=== PATIENT | male | born 1990 | race Two or more races ===

== ENCOUNTER 2020-05-19 19:39 | Emergency (ER) | payer MEDICARE, MEDICAID ==
[2020-05-19 20:26] LABS: ABSOLUTE BASOPHILS # (AUTO) 0.1 10^3/uL (0.0-0.2); ABSOLUTE EOSINOPHILS # (AUTO) 0.3 10^3/uL (0.0-0.6); ABSOLUTE LYMPHOCYTES (AUTO) 3.3 10^3/uL (0.5-4.7); ABSOLUTE MONOCYTES (AUTO) 0.6 10^3/uL (0.1-1.4); ABSOLUTE NEUT (AUTO) 4.5 10^3/uL (1.7-8.2); BASOPHILS % (AUTO) 0.6 % (0-2); EOSINOPHILS % (AUTO) 2.9 % (0-6); HEMOGLOBIN 16.1 g/dL (13.5-17.0); LYMPHOCYTES % (AUTO) 38.3 % (13-45); MEAN CORPUSCULAR HEMOGLOBIN 33.1 pg (27.0-33.4); MEAN CORPUSCULAR HGB CONC 35.8 g/dL (32.0-36.0); MEAN CORPUSCULAR VOLUME 92 fl (80-97); MONOCYTES % (AUTO) 6.5 % (3-13); PLATELET COUNT 236 10^3/uL (150-450); RED BLOOD COUNT 4.88 10^6/uL (4.35-5.55); RED CELL DISTRIBUTION WIDTH 12.6 % (11.5-14.0); SEGMENTED NEUTROPHILS % (AUTO) 51.7 % (42-78); TOTAL CELLS COUNTED % (AUTO) 100 %; WHITE BLOOD COUNT 8.7 10^3/uL (4.0-10.5)
[2020-05-19 20:30] LABS: ALBUMIN 4.4 g/dL (3.5-5.0); ALKALINE PHOSPHATASE 112 U/L (38-126); ANION GAP 10 (5-19); ASPARTATE AMINO TRANSFERASE 28 U/L (17-59); BILIRUBIN,DIRECT 0.3 mg/dL (0.0-0.4); BILIRUBIN,TOTAL 0.6 mg/dL (0.2-1.3); BLOOD UREA NITROGEN 11 mg/dL (7-20); CALCIUM 9.6 mg/dL (8.4-10.2); CARBON DIOXIDE 24 mmol/L (22-30); CHLORIDE 102 mmol/L (98-107); GLUCOSE 283 mg/dL (75-110); POTASSIUM 4.2 mmol/L (3.6-5.0); TOTAL PROTEIN 7.5 g/dL (6.3-8.2)
[2020-05-19 20:33] LABS: ALCOHOL < 10 mg/dL (NONE DETECTED)
--- NOTE | 2020-05-19 20:58 | EKG REPORT ---
SEVERITY:- BORDERLINE ECG - SINUS RHYTHM BORDERLINE IVCD WITH LAD : Confirmed by: Sonu Esquivel MD 19-May-2020 20:58:25
--- NOTE | 2020-05-19 21:45 | ER Document Report ---
ED General - General Chief Complaint: Probable Seizure Stated Complaint: POSSIBLE SEIZURE Time Seen by Provider: 05/19/20 21:01 - HPI Notes: Patient is a 29-year-old male who presents to the emergency department for evaluation of possible seizure. He has had activity like this in the past, never have is been diagnosed. He has not had an episode like this since moving to [place] from [facility] only 2 years ago. Evidently he went outside to smoke a cigarette. He was walking in, felt dizzy. He sat down and had started having this episode. Patient's states his arms were extended, his legs were spread and shaking, his head was back, and occasionally his eyes rolled back, but primarily they were straight ahead. He was not incontinent of bowel or bladder. He did not bite his tongue. He states he has a mild headache now. He states that before these episodes he gets a "tingling in the nerves in the back of my brain." He has never been evaluated by neurology. - Related Data Allergies/Adverse Reactions: Penicillins Allergy (Verified 05/19/20 21:42) Home Medications: None Past Medical History - General Information source: Patient - Social History Smoking Status: Current Every Day Smoker Frequency of alcohol use: None Drug Abuse: Marijuana Family History: COPD Patient has homicidal ideation: No Neurological Medical History: Reports: Hx Seizures - Undiagnosed Endocrine Medical History: Reports: Hx Diabetes Mellitus Type 2 - borderline, no meds Review of Systems - Review of Systems Constitutional: No symptoms reported EENT: No symptoms reported Cardiovascular: No symptoms reported Respiratory: No symptoms reported Gastrointestinal: No symptoms reported Genitourinary: No symptoms reported Musculoskeletal: No symptoms reported Skin: No symptoms reported Neurological/Psychological: See HPI Physical Exam - Vital signs Vitals: Resp Pulse Ox 13 98 05/19/20 19:45 05/19/20 19:45 - Notes Notes: This is an obese 29-year-old male, who appears his stated age, no acute distress . Vital signs reviewed, please refer to chart. Head is normocephalic, atraumatic. Pupils equal round, reactive to light. Neck is supple without meningismus. Heart is regular rate and rhythm. Lungs are clear to auscultation bilaterally. Abdomen is soft, nontender, normoactive bowel sounds throughout. Extremities without cyanosis, clubbing. Posterior calves are nontender. Peripheral pulses are equal. Skin is warm and dry. Patient is awake, alert, oriented x3. Cranial nerves II - XII are grossly intact without focal neurological deficits. Strength is plus 5 out of 5 bilateral upper and lower extremities. Sensation is intact. Reflexes symmetrical. Intact [id number], rapid alternating movements, [id number]. Course - Re-evaluation Re-evalutation: 05/19/20 21:44 Patient presents to the emergency department for evaluation. He reports a 10- minute episode that may be a seizure. He is never had an EEG. Here he is neurologically intact. Laboratory investigations are ordered as through triage. I am still awaiting urinalysis. At this point, he has no neurological deficits. I believe that a neurology referral is appropriate at this time. I have told the patient that he is not to drive, he states he does not drive. He is currently stable, seizure precautions are in place. Awaiting urinalysis, we will continue to monitor. 05/19/20 22:49 Urinalysis is unremarkable. Drug screen is only positive for marijuana, which the patient admits, and is an unlikely etiology for these episodes. Will refer him to neurology. He is to return to the ER with worsening. - Vital Signs Vital signs: Temp Pulse Resp BP Pulse Ox 98.1 F 15 137/82 H 97 05/19/20 19:46 05/19/20 20:01 05/19/20 20:01 05/19/20 20:01 - Laboratory Result Diagrams: 05/19/20 20:00 05/19/20 20:00 Laboratory results interpreted by me: 05/19/20 05/19/20 20:00 21:44 Sodium 136.1 L Glucose 283 H Urine Glucose (UA) >=500 H Urine Ketones TRACE H - EKG Interpretation by Me Additional EKG results interpreted by me: 05/19/20 21:45 Sinus mechanism with rate of 73 bpm. Left axis deviation. IVCD. Nonspecific ST changes, but no acute changes concerning for ischemia or infarction. There are no old studies available for comparison. Discharge - Discharge Clinical Impression: Witnessed seizure-like activity Condition: Stable Disposition: HOME, SELF-CARE Instructions: New Seizure ([facility]) Additional Instructions: It is unclear at this time as to whether or not these episodes are seizures. You need to follow-up with neurology. No driving. Return to the emergency department with worsening or new concerning symptoms of any sort. Referrals: MIKAL FISHER MD [NO LOCAL MD] - Follow up as needed
[2020-05-19 22:27] LABS: APPEARANCE,URINE CLEAR; BILIRUBIN,URINE NEGATIVE (NEGATIVE); COLOR,URINE YELLOW; GLUCOSE, URINE >=500 mg/dL (NEGATIVE); KETONES,URINE TRACE mg/dL (NEGATIVE); LEUKOCYTE ESTERASE,URINE NEGATIVE (NEGATIVE); NITRITE,URINE NEGATIVE (NEGATIVE); PROTEIN,URINE NEGATIVE (NEGATIVE); URINE SPECIFIC GRAVITY 1.031; UROBILINOGEN,URINE NEGATIVE mg/dL (<2.0)
[2020-05-19 22:46] LABS: URINE AMPHETAMINES SCREEN NEGATIVE; URINE BARBITURATES SCREEN NEGATIVE; URINE BENZODIAZEPINES SCREEN NEGATIVE; URINE COCAINE SCREEN NEGATIVE; URINE METHADONE SCREEN NEGATIVE; URINE PHENCYCLIDINE SCREEN NEGATIVE
[2020-05-19 22:47] LABS: URINE MARIJUANA (THC) SCREEN UNCONFIRMED POSITIVE
[2020-05-19 23:18] VITALS: BP 122/70
== END 2020-05-19 23:18 | disposition home or self-care (01) ==
LOC: ER 19:39
DX: R42 Dizziness and giddiness (principal); R51 Headache; R20.2 Paresthesia of skin; I45.9 Conduction disorder, unspecified; F17.200 Nicotine dependence, unspecified, uncomplicated; F17.210 Nicotine dependence, cigarettes, uncomplicated; F12.10 Cannabis abuse, uncomplicated; Z88.0 Allergy status to penicillin
CPT/HCPCS: 36415; 80053; 80307; 81001; 83735; 85025; 93005; 93010; 99284

== ENCOUNTER 2020-06-01 08:22 | Emergency (ER) | payer MEDICARE, MEDICAID ==
[2020-06-01 08:32] VITALS: BP 141/82
[2020-06-01] MEDS ORDERED: IBUPROFEN 600 MG TABLET PO ONE (08:43)
[2020-06-01] MEDS ORDERED: OXYCODONE-ACETAMINOPHEN 5-325 MG TABLET PO ONE (08:43)
--- NOTE | 2020-06-01 08:46 | ER Document Report ---
HPI - HPI Time Seen by Provider: 06/01/20 08:39 Pain Level: 4 Notes: 29-year-old male patient presented emergency department chief complaint of right ankle pain. Patient reports just prior to arrival he was walking through a grocery store when he fell twisting his ankle. He is complaining of pain on the lateral side. He has not taken any medication for his symptoms. - ROS Systems Reviewed and Negative: Yes All other systems reviewed and negative - REPRODUCTIVE Reproductive: DENIES: : - MUSCULOSKELETAL Musculoskeletal: REPORTS: Extremity pain Past Medical History - General Information source: Patient - Social History Smoking Status: Never Smoker Frequency of alcohol use: None Drug Abuse: None Family History: COPD Patient has homicidal ideation: No Neurological Medical History: Reports: Hx Seizures - Undiagnosed Endocrine Medical History: Reports: Hx Diabetes Mellitus Type 2 - takes jose luis insulin Vertical Provider Document - CONSTITUTIONAL Notes: PHYSICAL EXAMINATION: GENERAL: Well-appearing, well-nourished and in no acute distress. HEAD: Atraumatic, normocephalic. EYES: Pupils equal round extraocular movements intact, conjunctiva are normal. ENT: Nares patent NECK: Normal range of motion LUNGS: No respiratory distress Musculoskeletal: Limited range of motion at the right ankle, pain with dorsiflexion, mild swelling noted, strong dorsalis pedis and posterior tibialis pulses, cap refill less than 3 seconds, normal motor and sensation distally. No obvious deformity. NEUROLOGICAL: Normal speech. PSYCH: Normal mood, normal affect. SKIN: Warm, Dry, normal turgor, no rashes or lesions noted. Course - Re-evaluation Re-evalutation: Ankle X-Ray 06/01/20 00:00 IMPRESSION: No acute osseous abnormality in the right ankle. - Vital Signs Vital signs: Temp Pulse Resp BP Pulse Ox 98.2 F 74 16 141/82 H 100 06/01/20 08:31 06/01/20 08:31 06/01/20 08:31 06/01/20 08:31 06/01/20 08:31 Procedures - Immobilization R ankle Immobilizer type: Ankle stirrup, Crutches Performed by: PCT Post-Proc Neuro Vasc Exam: Normal Alignment checked and good: Yes Discharge - Discharge Clinical Impression: Right ankle injury Qualifiers: Encounter type: initial encounter Qualified Code(s): S99.911A - Unspecified injury of right ankle, initial encounter Condition: Stable Disposition: HOME, SELF-CARE Additional Instructions: Your x-ray does not show any acute fracture. You have a sprained ankle. Keep the area elevated, apply ice 20 minutes every 2 hours, and use crutches as needed. You should take ibuprofen 600 mg every 6 hours as needed for pain. Please return if you have worsening pain and swelling, fever greater than 101, you notice spreading redness from the area, or have any other symptoms that are concerning to you. Please follow-up with orthopedic surgery if your symptoms have not improved in the next 2-3 weeks. Forms: Return to Work Referrals: MONICA HAMM JR, DO [ACTIVE PROVISIONAL STAFF] - Follow up as needed
--- NOTE | 2020-06-01 08:56 | RADIOLOGY REPORT (SQ) ---
EXAM DESCRIPTION: ANKLE RIGHT COMPLETE IMAGES COMPLETED DATE/TIME: 06/01/2020 8:39 am REASON FOR STUDY: fall; pain to the area COMPARISON: None. NUMBER OF VIEWS: Three views. TECHNIQUE: AP, lateral, and oblique radiographic images acquired of the right ankle. LIMITATIONS: None. FINDINGS: MINERALIZATION: Normal. BONES: No acute fracture or dislocation. No worrisome bone lesions. Chronic appearing fragmentation is noted about the tip of the lateral malleolus. Small Achilles calcaneal enthesophyte is present. JOINTS: No effusions. SOFT TISSUES: No soft tissue swelling. No foreign body. OTHER: No other significant finding. IMPRESSION: No acute osseous abnormality in the right ankle. TECHNICAL DOCUMENTATION: JOB ID: [id number] 2010 [employer]- All Rights Reserved Reading location - IP/workstation name: [email or web address]
== END 2020-06-01 09:14 | disposition home or self-care (01) ==
LOC: ER 08:22
DX: S99.911A Unspecified injury of right ankle, initial encounter (principal); W01.0XXA Fall on same level from slipping, tripping and stumbling without subsequent striking against object, initial encounter; Y93.89 Activity, other specified; Y92.512 Supermarket, store or market as the place of occurrence of the external cause
CPT/HCPCS: 99283; 73610; A9270 ×2